=== PATIENT | female | born 1995 | race African-American/Black ===

== ENCOUNTER 2016-06-29 11:19 | Emergency (ER) | payer MEDICAID ==
[~2016-06-29] VITALS: Ht 149.9 cm; Wt 65.0 kg
[2016-06-29] MEDS ORDERED: PREN-88 PO (12:41)
[2016-06-29 14:23] LABS: BASOPHILS % 0.3 % (0.0-2.0); EOSINOPHILS % 1.3 % (0.0-5.0); HEMATOCRIT. 35.9 % (36.0-48.0); HEMOGLOBIN. 12.3 g/dL (12.0-16.0); LYMPHOCYTES % 21.9 % (20.0-50.0); MEAN CORPUSCULAR HEMOGLOBIN 30.5 pg (28.0-32.0); MEAN CORPUSCULAR HGB CONC 34.2 g/dL (31.0-37.0); MEAN CORPUSCULAR VOLUME 89.3 fL (81.0-99.0); MEAN PLATELET VOLUME 8.3 fl (7.4-10.4); MONOCYTES % 8.2 % (2.0-8.0); NEUTROPHILS % 68.3 % (40.0-76.0); PLATELET 220 x1000/uL (130-400); RED BLOOD CELL COUNT 4.02 mill/uL (4.2-5.4); RED CELL DISTRIBUTION WIDTH 12.8 % (11.6-14.6); WHITE BLOOD COUNT 8.7 x1000/uL (4.5-11.0)
[2016-06-29 14:26] LABS: CHLORIDE 104 mEq/L (98-107); INDEX HEMOLYSI 1 (1-3); INDEX ICTERIC 1 (1-4); INDEX LIPEMIC 1 (1-3)
[2016-06-29 14:31] LABS: ANION GAP 14; CALCIUM 8.9 mg/dL (8.5-10.1); CARBON DIOXIDE 24 mEq/L (21-32); UREA NITROGEN BLOOD 5 mg/dL (7-21); eGFR > 60 mL/min (>60)
[2016-06-29 14:35] LABS: CLARITY URINE CLEAR (CLEAR); COLOR URINE YELLOW (YELLOW); GLUCOSE URINE NEGATIVE (NEGATIVE); KETONES URINE 1+ (NEGATIVE); LEUKOCYTE ESTERASE URINE NEGATIVE (NEGATIVE); NITRITE URINE NEGATIVE (NEGATIVE); OCCULT BLOOD URINE 1+ (NEGATIVE); PROTEIN URINE NEGATIVE (NEGATIVE); SPECIFIC GRAVITY URINE 1.021 (1.005-1.030); UROBILINOGEN URINE 0.2 E.U./dL (0.2-1.0)
[2016-06-29 14:38] LABS: BACTERIA URINE NONE SEEN; CALCIUM PHOSPHATE CRYSTALS UR NONE SEEN /lpf; RBC URINE NONE SEEN /hpf (0-2); SQUAMOUS EPITHELIAL CELL URINE 1+ /lpf (RARE/1+); WAXY CASTS URINE NONE SEEN /lpf; WBC URINE NONE SEEN /hpf (0-2); YEAST URINE NONE SEEN
[2016-06-29 14:48] LABS: B-HCG QUANTITATIVE 72475 mIU/mL (<3)
[2016-06-29 15:15] VITALS: BP 108/62
== END 2016-06-29 16:15 | disposition home or self-care (01) ==
LOC: ER 11:19
DX: O20.0 Threatened abortion (principal); Z3A.13 13 weeks gestation of pregnancy
CPT/HCPCS: 36415; 76801; 76817; 80048; 81001; 84702; 85025; 86850; 86900; 86901; 99285; Z7610

== ENCOUNTER 2016-09-19 16:59 | Observation (INO) | payer MEDICAID ==
[~2016-09-19] VITALS: Ht 149.9 cm; Wt 68.0 kg
[~2016-09-19 16:59] MED LIST: PREN-88 PO
[2016-09-19] MEDS ORDERED: PREN-88 PO (17:23)
[2016-09-19] MEDS ORDERED: SIMETHICONE 80MG TABLET CHEW PO PRN (18:15)
== END 2016-09-19 18:50 | disposition home or self-care (01) ==
LOC: L&D 16:59
PROVIDERS: ADMIT Specialist; ATTEND Specialist
DX: O26.892 Other specified pregnancy related conditions, second trimester (principal); R10.10 Upper abdominal pain, unspecified; Z3A.24 24 weeks gestation of pregnancy
CPT/HCPCS: 99281; G0378